=== PATIENT | male | born 1955 | race Two or more races ===

== ENCOUNTER 2018-05-24 20:28 | Observation (INO) | payer SELFPAY ==
[~2018-05-24] VITALS: Ht 162.6 cm; Wt 88.0 kg
[2018-05-24] MEDS ORDERED: ASPIRIN 81 MG TABLET CHEW PO ONE (21:00)
[2018-05-24] MEDS ORDERED: SODIUM CHLORIDE FLUSH 10ML SYR IVF ONE (21:00)
[2018-05-24 21:28] LABS: BASOPHILS % (AUTO) 1 % (0-1); EOSINOPHILS % (AUTO) 1 % (1-7); LYMPHOCYTES # (AUTO) 3.26 x10^3/uL (1-3.4); LYMPHOCYTES % (AUTO) 30 % (22-44); MD NO; MEAN CORPUSCULAR HEMOGLOBIN 31.5 pg (27.5-34.5); MEAN CORPUSCULAR HGB CONC 33.7 g/dL (33.2-36.2); MEAN CORPUSCULAR VOLUME 93.5 fL (81-97); MEAN PLATELET VOLUME 9.2 fL (7.4-10.4); MONOCYTES # (AUTO) 0.85 x10^3/uL (0.2-0.8); MONOCYTES % (AUTO) 8 % (2-9); NEUTROPHILS # (AUTO) 6.53 x10^3/uL (1.8-6.8); NEUTROPHILS % (AUTO) 60 % (42-75); PLATELET COUNT 229 x10^3/uL (130-400); RED BLOOD COUNT 5.13 x10^6/uL (4.38-5.82); RED CELL DISTRIBUTION WIDTH 12.5 % (9.4-14.8)
[2018-05-24 21:37] LABS: ALBUMIN 3.9 g/dL (3.4-5.0); ANION GAP 8 mmol/L (5-15); CALCIUM 9.3 mg/dL (8.5-10.1); CHLORIDE 107 mmol/L (98-107)
[2018-05-24 21:42] LABS: ALANINE AMINOTRANSFERASE 48 U/L (12-78); ALKALINE PHOSPHATASE 64 U/L (45-117); BILIRUBIN,TOTAL 0.6 mg/dL (0.2-1.0); CREATININE 1.04 mg/dL (0.7-1.3); TOTAL PROTEIN 8.4 g/dL (6.4-8.2); TROPONIN I < 0.015 ng/mL (0.000-0.045)
[2018-05-24] MEDS ORDERED: METF500T17 PO (23:41)
[2018-05-24] MEDS ORDERED: ASPIRIN 81 MG TABLET CHEW ONE (23:45)
[2018-05-25] VITALS (8 sets, daily range): BP systolic 134–163; BP diastolic 56–89
[2018-05-25] MEDS ORDERED: ACETAMINOPHEN 325 MG TABLET PO PRN
[2018-05-25] MEDS ORDERED: DEXTROSE 50%, 50ML SYRINGE IVPush PRN
[2018-05-25] MEDS ORDERED: DOCUSATE 100 MG CAPSULE PO PRN
[2018-05-25] MEDS ORDERED: ENOXAPARIN 40 MG/0.4 ML SQ SCH
[2018-05-25] MEDS ORDERED: POLYETHYLENE GLYCOL 17 GM PACKET PO PRN
[2018-05-25] MEDS ORDERED: HYDROcodone/APAP 5/325 TABLET PO PRN
[2018-05-25] MEDS ORDERED: GLUCAGON 1 MG IM PRN
[2018-05-25] MEDS ORDERED: ONDANSETRON 2MG/ML, 2ML IVPush PRN
[2018-05-25] MEDS ORDERED: DEXTROSE 4 GM TAB.CHEW PO PRN
[2018-05-25] MEDS ORDERED: morphine SULFATE 10 MG/ML, 1ML IVPush PRN
[2018-05-25 00:22] LABS: HEMOGLOBIN A1C 7.3 % (4.2-6.3)
[2018-05-25 05:14] LABS: CHOLESTEROL, TOTAL 117 mg/dL (140-239)
[2018-05-25 05:18] LABS: CHOL/HDL RATIO 2.7; HDL CHOL % 38 % (26-37); HDL CHOLESTEROL (DIRECT) 44 mg/dL (40-60); LDL CHOLESTEROL,CALCULATED 60 mg/dL (54-169); LDL/HDL RATIO 1.4 (0.5-3.0); TRIGLYCERIDES 65 mg/dL (50-200); TROPONIN I < 0.015 ng/mL (0.000-0.045); VLDL CHOLESTEROL 13 mg/dL (0-25)
[2018-05-25] MEDS ORDERED: ASPIRIN 325 MG TABLET EC PO SCH (06:00)
[2018-05-25] MEDS: INSULIN LISPRO 100 UNITS/ML, PEN SQ-INSULIN SCH ×3 (07:00→16:00)
[2018-05-25] MEDS ORDERED: REGADENOSON 0.4 MG/5 ML SYRINGE ONE (08:42)
[2018-05-25] MEDS ORDERED: FAMOTIDINE 20 MG TABLET PO SCH (09:00)
[2018-05-25] MEDS ORDERED: SENNA/DOCUSATE TABLET PO SCH (09:00)
[2018-05-25] MEDS ORDERED: SODIUM CHLORIDE FLUSH 10ML SYR IVF SCH ×2 (09:00)
[2018-05-25] MEDS ORDERED: MECL25TA4 PO (12:12)
[2018-05-25] MEDS ORDERED: LOSA100T7 PO (12:12)
[2018-05-25] MEDS ORDERED: FEXO180T15 PO (12:12)
[2018-05-25] MEDS ORDERED: METF500T17 PO (12:12)
[2018-05-25] MEDS ORDERED: ATOR20TA9 PO (12:12)
[2018-05-25] MEDS ORDERED: FAMO20TA7 PO (15:56)
== END 2018-05-25 18:45 | disposition home or self-care (01) ==
LOC: ED 23:30 → SUATTDRO 23:36 → EDIP 23:47 → ED 23:59 → 5SO 05-25 00:37
PROVIDERS: ADMIT Family Medicine; ATTEND Family Medicine
DX: R07.89 Other chest pain (principal); E11.9 Type 2 diabetes mellitus without complications; Z79.84 Long term (current) use of oral hypoglycemic drugs; Z83.3 Family history of diabetes mellitus
CPT/HCPCS: 36415; 71046; 78452; 80053; 80061; 82962; 83036; 83880; 84484; 85025; 93005; 93017; 96372; 99285; A9502; C9898; G0378; J1650; J2785

== ENCOUNTER 2018-08-19 15:56 | Emergency (ER) | payer OTHER ==
[~2018-08-19] VITALS: Ht 167.6 cm; Wt 89.0 kg
[~2018-08-19 15:56] MED LIST: ATOR20TA37 PO; FAMO20TA7 PO; FEXO180T15 PO; LOSA100T14 PO; MECL25TA4 PO; METF500T17 PO
--- NOTE | 2018-08-19 16:52 | NUR ---
pt to room from lobby
--- NOTE | 2018-08-19 16:55 | NUR ---
FIRST CONTACT WITH PATIENT. 62 Y/O MALE PRESENTS TO ED WITH C/O DIZZINESS. PER DAUGHTER "HE'S BEEN FEELING DIZZY. HE FEELS LIKE THE WHOLE ROOM IS SPINNING. IT'S BEEN SINCE YESTERDAY. THIS HAS HAPPENED BEFORE. IT WOULD ONLY LAST FOR HOURS THEN GO AWAY. IT WOULD HAPPEN ABOUT TWICE A MONTH." NO ACUTE DISTRESS NOTED. NO D, TRAUMA, SYNCOPE, CP, SOB. PT PLACED ON CONT PULSE OX, NIBP, RN INTERNSHIP.
[2018-08-19 17:24] LABS: BASOPHILS # (AUTO) 0.03 x10^3/uL (0-0.1); BASOPHILS % (AUTO) 0 % (0-1); EOSINOPHILS # (AUTO) 0.09 x10^3/uL (0-0.4); EOSINOPHILS % (AUTO) 1 % (1-7); LYMPHOCYTES # (AUTO) 2.58 x10^3/uL (1-3.4); LYMPHOCYTES % (AUTO) 26 % (22-44); MD NO; MEAN CORPUSCULAR HEMOGLOBIN 31.7 pg (27.5-34.5); MEAN CORPUSCULAR HGB CONC 34.5 g/dL (33.2-36.2); MEAN CORPUSCULAR VOLUME 91.9 fL (81-97); MEAN PLATELET VOLUME 8.8 fL (7.4-10.4); MONOCYTES # (AUTO) 0.77 x10^3/uL (0.2-0.8); MONOCYTES % (AUTO) 8 % (2-9); NEUTROPHILS # (AUTO) 6.62 x10^3/uL (1.8-6.8); NEUTROPHILS % (AUTO) 66 % (42-75); PLATELET COUNT 216 x10^3/uL (130-400); RED BLOOD COUNT 4.95 x10^6/uL (4.38-5.82); RED CELL DISTRIBUTION WIDTH 12.7 % (9.4-14.8)
[2018-08-19 17:34] LABS: ALBUMIN 3.8 g/dL (3.4-5.0); ANION GAP 8 mmol/L (5-15); CHLORIDE 107 mmol/L (98-107); CREATININE 0.92 mg/dL (0.7-1.3)
[2018-08-19 17:38] LABS: TROPONIN I < 0.015 ng/mL (0.000-0.045)
--- NOTE | 2018-08-19 17:49 | NUR ---
PT RESTING ON GURNEY. DAUGHTER BEDSIDE. PT AWAITING TO BE TAKEN TO IMAGING. NO ACUTE DISTRESS NOTED. NO NEEDS REQUESTED AT THIS TIME.
--- NOTE | 2018-08-19 18:02 | NUR ---
pt ambulatory with steady gait to bathroom. pt states "I CAN GO ON MY OWN."
--- NOTE | 2018-08-19 18:22 | NUR ---
PT TO IMAGING
--- NOTE | 2018-08-19 18:51 | NUR ---
pt back from imaging
--- NOTE | 2018-08-19 18:56 | NUR ---
BEDSIDE REPORT TO LUISITO COLON.
[2018-08-19] MEDS ORDERED: OMNIPAQUE 350 MG/ML, 100ML BOTTLE ONE (18:57)
[2018-08-19 18:58] VITALS: BP 134/82
== END 2018-08-19 20:25 | disposition home or self-care (01) ==
LOC: ED 19:15
DX: R42 Dizziness and giddiness (principal); I10 Essential (primary) hypertension; E11.9 Type 2 diabetes mellitus without complications; E78.00 Pure hypercholesterolemia, unspecified; Z86.73 Personal history of transient ischemic attack (TIA), and cerebral infarction without residual deficits
CPT/HCPCS: 36415; 70450; 70496; 70498; 71045; 80048; 82040; 84484; 85025; 93005; 99284; Q9967